=== PATIENT | female | born 1980 | race Two or more races ===

== ENCOUNTER 2018-02-09 18:52 | Emergency (ER) | payer MEDICAID ==
[~2018-02-09] VITALS: Ht 160 cm; Wt 99.0 kg
[2018-02-09] MEDS ORDERED: DEXAMETHASONE 10 MG/ML VIAL IM ONE (22:00)
[2018-02-09] MEDS ORDERED: KETOROLAC 30MG/ML VIAL IM ONE (22:00)
[2018-02-10 00:47] VITALS: BP 135/86
[2018-02-10] MEDS ORDERED: AMOXICILLIN/POTASSIUM CLAVULANATE 875/125MG TAB PO ONE (01:00)
== END 2018-02-10 01:54 | disposition home or self-care (01) ==
LOC: ER 18:52
DX: K04.7 Periapical abscess without sinus (principal); J45.909 Unspecified asthma, uncomplicated
CPT/HCPCS: 70486; 81025; 96372; 99284; J1100; J1885

== ENCOUNTER 2018-06-01 17:24 | Emergency (ER) | payer BC, MEDICAID ==
[~2018-06-01] VITALS: Ht 160 cm; Wt 101.0 kg
[2018-06-01] MEDS ORDERED: IBUPROFEN 600MG TABLET PO ONE (19:15)
[2018-06-01 19:38] LABS: BASOPHILS % 0.4 % (0.0-2.0); EOSINOPHILS % 1.6 % (0.0-5.0); HEMATOCRIT. 36.5 % (36.0-48.0); LYMPHOCYTES % 26.9 % (20.0-50.0); MEAN CORPUSCULAR HEMOGLOBIN 31.4 pg (28.0-32.0); MEAN CORPUSCULAR VOLUME 88.1 fL (81.0-99.0); MEAN PLATELET VOLUME 8.2 fl (7.4-10.4); MONOCYTES % 7.2 % (2.0-8.0); NEUTROPHILS % 63.9 % (40.0-76.0); PLATELET 298 x1000/uL (130-400); RED BLOOD CELL COUNT 4.14 mill/uL (4.2-5.4); RED CELL DISTRIBUTION WIDTH 13.9 % (11.6-14.6)
[2018-06-01 19:47] LABS: CHLORIDE 106 mEq/L (98-107)
[2018-06-01 20:23] LABS: CLARITY URINE CLEAR (CLEAR); COLOR URINE YELLOW (YELLOW); KETONES URINE NEGATIVE (NEGATIVE); LEUKOCYTE ESTERASE URINE NEGATIVE (NEGATIVE); NITRITE URINE NEGATIVE (NEGATIVE); OCCULT BLOOD URINE 2+ (NEGATIVE); PH URINE 5.5 (4.5-8.0); PROTEIN URINE NEGATIVE (NEGATIVE); SPECIFIC GRAVITY URINE 1.041 (1.005-1.030); UROBILINOGEN URINE 0.2 E.U./dL (0.2-1.0)
[2018-06-01 22:52] VITALS: BP 138/79
== END 2018-06-01 22:53 | disposition home or self-care (01) ==
LOC: ER 17:24
DX: N93.8 Other specified abnormal uterine and vaginal bleeding (principal); N83.202 Unspecified ovarian cyst, left side; J45.909 Unspecified asthma, uncomplicated
CPT/HCPCS: 36415; 76830; 76856; 81025; 99284